=== PATIENT | male | born 1950 | race Caucasian/White ===

== ENCOUNTER 2016-12-13 10:46 | Emergency (ER) | payer MEDICARE, OTHER | END 2016-12-13 15:42 | disposition short-term general hospital (02) | LOC: ER 10:46 | DX: K85.90 Acute pancreatitis without necrosis or infection, unspecified (principal); K81.9 Cholecystitis, unspecified; I25.10 Atherosclerotic heart disease of native coronary artery without angina pectoris; I50.9 Heart failure, unspecified | CPT/HCPCS: 36415; 96361; 96365 ==

== ENCOUNTER → 2017-01-24 | Day surgery (SDC) | payer MEDICARE, OTHER | END | disposition home or self-care (01) | LOC: SDC 08:24 | DX: H02.34 Blepharochalasis left upper eyelid (principal); H02.31 Blepharochalasis right upper eyelid; I10 Essential (primary) hypertension; I51.7 Cardiomegaly; Z98.52 Vasectomy status; Z79.82 Long term (current) use of aspirin; Z79.899 Other long term (current) drug therapy; F17.210 Nicotine dependence, cigarettes, uncomplicated; G47.33 Obstructive sleep apnea (adult) (pediatric); Z90.49 Acquired absence of other specified parts of digestive tract; I25.10 Atherosclerotic heart disease of native coronary artery without angina pectoris; Z95.5 Presence of coronary angioplasty implant and graft; I25.2 Old myocardial infarction; H35.30 Unspecified macular degeneration; F41.9 Anxiety disorder, unspecified; H26.9 Unspecified cataract | CPT/HCPCS: J2270; J2704 ==